=== PATIENT | female | born 1950 | race Caucasian/White ===

== ENCOUNTER → 2024-05-20 09:15 | Outpatient (REF) | payer MEDICARE, OTHER, SELFPAY | LOC: HWRAD 09:15 | PROVIDERS: ATTENDING PHYSICIAN Family Medicine | DX: R19.03 Right lower quadrant abdominal swelling, mass and lump (principal) | CPT/HCPCS: 74177; Q9967 ==

== ENCOUNTER 2024-05-31 08:19 | Outpatient (REF) | payer MEDICARE, OTHER, SELFPAY ==
[2024-05-27 13:05] VITALS: BMI 25.2
[2024-05-31] VITALS (7 sets, daily range): BP systolic 65–144; BP diastolic 64–81
[2024-05-31 08:38] LABS: Hematocrit 30.5 % (37.0-47.0); Hemoglobin 10.4 g/dL (12.0-16.0); Mean Corp Hgb Conc. 34.1 g/dL (33.0-37.0); Mean Corpuscular Hgb 29.5 pg (27.0-31.0); Mean Corpuscular Volume 86.4 fL (81.0-99.0); Mean Platelet Volume 8.7 fL (7.4-10.4); Platelet Count 308 10^3/uL (130-400); Red Blood Cell Count 3.53 10^6/uL (4.20-5.40); Red Cell Dist. Width 13.2 % (11.5-14.5)
[2024-05-31 08:45] LABS: INR 1.25; PT 15.6 Sec (11.4-14.6)
== END 2024-05-31 13:25 | disposition home or self-care (01) ==
LOC: RADI 08:19
PROVIDERS: ATTENDING PHYSICIAN Internal Medicine Hematology & Oncology; FAMILY PHYSICIAN Family Medicine
DX: C22.0 Liver cell carcinoma (principal); D68.8 Other specified coagulation defects
CPT/HCPCS: 88307; 36415; 47000; 76942; 85027; 85610; 88313; 88333; 88341; 88342; 88360; 99152; 99153

== ENCOUNTER → 2024-06-25 13:23 | Outpatient (REF) | payer MEDICARE, OTHER, SELFPAY ==
[2024-06-25 14:12] LABS: % Basophils 0.8 % (0-2); % Eosinophils 0.8 % (0-6); % Immature Granulocytes 0.2 % (0-0.5); % Lymphocytes 24.6 % (20.5-51.1); % Monocytes 12.6 % (1.7-9.3); Absolute Lymphocytes 1.2 10^3/uL (1.2-3.4); Absolute Monocytes 0.6 10^3/uL (0.1-0.6); Hematocrit 33.7 % (37.0-47.0); Hemoglobin 11.2 g/dL (12.0-16.0); Mean Corp Hgb Conc. 33.2 g/dL (33.0-37.0); Mean Corpuscular Hgb 28.6 pg (27.0-31.0); Mean Corpuscular Volume 86.2 fL (81.0-99.0); Mean Platelet Volume 8.8 fL (7.4-10.4); Nucleated Red Blood Cells % 0 %; Platelet Count 285 10^3/uL (130-400); Red Blood Cell Count 3.91 10^6/uL (4.20-5.40); Red Cell Dist. Width 13.5 % (11.5-14.5); White Blood Cell Count 4.8 10^3/uL (4.8-10.8)
[2024-06-25 14:16] LABS: Urine Albumin Trace (Neg - Trace); Urine Bilirubin 1+ (Negative); Urine Character Clear (Clear); Urine Color Yellow; Urine Glucose Negative (Negative); Urine Ketone Trace (Negative); Urine Leukocyte Trace (Negative); Urine Nitrite Negative (Negative); Urine Occult Blood Negative (Negative); Urine Urobilinogen Negative (Neg - 1+)
[2024-06-25 14:25] LABS: Urine Bacteria Few (Negative); Urine Mucus Moderate
[2024-06-25 14:35] LABS: ALT (SGPT) 32 U/L (0-35); AST (SGOT) 62 U/L (14-36); Albumin 4.3 g/dl (3.5-5.0); Alkaline Phosphatase 116 U/L (38-126); Blood Urea Nitrogen 16 mg/dl (7-17); Calcium 9.6 mg/dl (8.4-10.2); Carbon Dioxide 27 mmol/L (22-30); Chloride 98 mmol/L (98-107); Direct Bilirubin 0.2 mg/dl (0.0-0.4); Glucose 96 mg/dl (70-99); Potassium 4.3 mmol/L (3.5-5.1); Sodium 134 mmol/L (135-145); Total Bilirubin 0.5 mg/dl (0.2-1.3); Total Protein 7.1 g/dl (6.3-8.2); eGFR > 60.00
== END ==
LOC: REG 13:23
PROVIDERS: ATTENDING PHYSICIAN Nurse Practitioner Family; FAMILY PHYSICIAN Family Medicine
DX: C78.7 Secondary malignant neoplasm of liver and intrahepatic bile duct (principal); R93.2 Abnormal findings on diagnostic imaging of liver and biliary tract; C22.0 Liver cell carcinoma
CPT/HCPCS: 36415; 80053; 81003; 81015; 82248; 85025

== ENCOUNTER → 2024-06-25 14:06 | Outpatient (REF) | payer MEDICARE, OTHER, SELFPAY | LOC: MRI 3T 14:06 | PROVIDERS: ATTENDING PHYSICIAN Internal Medicine Hematology & Oncology; FAMILY PHYSICIAN Family Medicine | DX: C78.7 Secondary malignant neoplasm of liver and intrahepatic bile duct (principal); R93.2 Abnormal findings on diagnostic imaging of liver and biliary tract; C22.0 Liver cell carcinoma | CPT/HCPCS: 36415; 74183; 80053; 81003; 81015; 82248; 85025; A9581 ==

== ENCOUNTER → 2024-06-28 16:32 | Outpatient (REF) | payer MEDICARE, OTHER, SELFPAY | LOC: REG 16:32 | PROVIDERS: ATTENDING PHYSICIAN Internal Medicine Hematology & Oncology; FAMILY PHYSICIAN Family Medicine | DX: C78.7 Secondary malignant neoplasm of liver and intrahepatic bile duct (principal); R93.2 Abnormal findings on diagnostic imaging of liver and biliary tract; C22.0 Liver cell carcinoma | CPT/HCPCS: 36415; 87040 ==

== ENCOUNTER → 2024-08-13 07:32 | Outpatient (REF) | payer MEDICARE, OTHER, SELFPAY | LOC: MRI 07:32 | PROVIDERS: ATTENDING PHYSICIAN Internal Medicine Hematology & Oncology; FAMILY PHYSICIAN Family Medicine | DX: C22.0 Liver cell carcinoma (principal); C78.7 Secondary malignant neoplasm of liver and intrahepatic bile duct; R93.2 Abnormal findings on diagnostic imaging of liver and biliary tract | CPT/HCPCS: 74183; A9581 ==

== ENCOUNTER → 2024-08-18 16:12 | Outpatient (REF) | payer MEDICARE, OTHER, SELFPAY ==
[2024-08-18 15:56] LABS: TSH Reflex To Free T4 3.87 uIU/ml (0.47-4.68)
[2024-08-19 20:23] LABS: AFP Male/Tumor Marker > 9960 ng/ml
== END ==
LOC: OIDL 16:12
PROVIDERS: ATTENDING PHYSICIAN Internal Medicine Hematology & Oncology
DX: C78.7 Secondary malignant neoplasm of liver and intrahepatic bile duct (principal); R93.2 Abnormal findings on diagnostic imaging of liver and biliary tract; C22.0 Liver cell carcinoma; R53.82 Chronic fatigue, unspecified
CPT/HCPCS: 82105; 84443

== ENCOUNTER → 2024-09-06 11:53 | Outpatient (REF) | payer MEDICARE, OTHER, SELFPAY | LOC: RADI 11:53 | PROVIDERS: ATTENDING PHYSICIAN Internal Medicine Hematology & Oncology; FAMILY PHYSICIAN Family Medicine | DX: C22.0 Liver cell carcinoma (principal) ==

== ENCOUNTER 2024-10-21 07:28 | Day surgery (SDC) | payer MEDICARE, OTHER, SELFPAY ==
[2024-10-21] VITALS (10 sets, daily range): BP systolic 57–183; BP diastolic 81–98; BMI 24.8; BMI 24.4
[2024-10-21 07:58] LABS: % Basophils 0.9 % (0-2); % Eosinophils 1.1 % (0-6); % Immature Granulocytes 0.4 % (0-0.5); % Lymphocytes 30.7 % (20.5-51.1); % Monocytes 7.3 % (1.7-9.3); % Neutrophils 59.6 % (42.2-75.2); Absolute Basophils 0.1 10^3/uL (0-0.2); Absolute Eosinophils 0.1 10^3/uL (0-0.7); Absolute Lymphocytes 1.6 10^3/uL (1.2-3.4); Absolute Monocytes 0.4 10^3/uL (0.1-0.6); Absolute Neutrophils 3.2 10^3/uL (1.4-6.5); Hematocrit 44.1 % (37.0-47.0); Hemoglobin 14.2 g/dL (12.0-16.0); Mean Corp Hgb Conc. 32.2 g/dL (33.0-37.0); Mean Corpuscular Hgb 29.9 pg (27.0-31.0); Mean Corpuscular Volume 92.8 fL (81.0-99.0); Mean Platelet Volume 8.7 fL (7.4-10.4); Nucleated Red Blood Cells % 0 %; Platelet Count 254 10^3/uL (130-400); Red Blood Cell Count 4.75 10^6/uL (4.20-5.40); Red Cell Dist. Width 13.4 % (11.5-14.5); White Blood Cell Count 5.4 10^3/uL (4.8-10.8)
[2024-10-21 08:04] LABS: APTT 28.4 Sec (23.4-35.0); INR 1.02; PT 13.9 Sec (11.4-14.6)
[2024-10-21] MEDS: FLAGYL 500 MG 100 IV (08:48)
[2024-10-21] MEDS: NSS 1000 IV ×2 (08:48→18:26)
[2024-10-21 09:05] LABS: ALT (SGPT) 36 U/L (0-35); AST (SGOT) 66 U/L (14-36); Albumin 4.8 g/dl (3.5-5.0); Alkaline Phosphatase 79 U/L (38-126); Blood Urea Nitrogen 27 mg/dl (7-17); Calcium 9.9 mg/dl (8.4-10.2); Carbon Dioxide 29 mmol/L (22-30); Chloride 103 mmol/L (98-107); Direct Bilirubin 0.1 mg/dl (0.0-0.4); Estimated Creatinine Clearance 57 ml/min; Glucose 91 mg/dl (70-99); LDH 205 U/L (120-246); Potassium 4.4 mmol/L (3.5-5.1); Sodium 144 mmol/L (135-145); Total Bilirubin 0.6 mg/dl (0.2-1.3); Total Protein 7.4 g/dl (6.3-8.2); eGFR > 60.00
[2024-10-21] MEDS: DECADRON 8 MG IV (09:23)
[2024-10-21] MEDS: BENADRYL 50 MG IV (09:23)
[2024-10-21] MEDS: ANCEF 10 IV (09:24)
[2024-10-21] MEDS: ZOFRAN 54 MG IV (09:24)
--- NOTE | 2024-10-21 13:51 | PTCARENOTE ---
pt received from IR lying flat, in no distress. pt oriented to room, told of continued posture restrictions. had a wave of nausea, did not vomit, but refused med at this time. c/o back pain r/t positioning but refused med at this time. right groin
with bandaid c/d/i
[2024-10-21] MEDS: ZOFRAN 4 MG IV ×2 (14:40→21:42)
[2024-10-21] MEDS: TORADOL 15 MG IV (18:25)
[2024-10-21] MEDS: ROXICODONE PO (21:38)
[2024-10-21] MEDS: PROCARDIA XL (EXTENDED RELEASE) 30 MG PO (22:39)
[2024-10-21] MEDS: ROXICODONE 2.5 MG PO (22:40)
--- NOTE | 2024-10-21 23:19 | PTCARENOTE ---
Pt c/o back pain. States has chronic back pain but exacerbated with laying on table for procedure today. Given toradol earlier which did not help. Pt does not want to take roxicodone 5mg-feels it will be too strong. Asking for lower dose. Also pt
asking about BP med she takes at HS. TT to house [employer]. Roxicodone lowered to 2.5mg-pt vomited as soon as she swallowed dose. Pill seen in emesis by me and witnessed by another RN. Pt med with zofran IV and then given another dose of roxicodone and
also given BP med. Neurovascular checks done as ordered.
[2024-10-22 00:15] VITALS: BP 166/89
[2024-10-22 03:21] VITALS: BP 170/82
[2024-10-22] MEDS: NSS 1000 IV (04:01)
[2024-10-22 07:15] VITALS: BP 118/74
--- NOTE | 2024-10-22 07:59 | W.PN.GENERIC ---
Assessment / Plan
-
This is a 74 yo female with biopsy proven HCC who underwent chemoembolization yetserday. She has some back pain today but is voiding spontaneously and tolerating POs
She is stable for discharge
Plan to have her return to IR in 2 weeks for repeat embolization
I spent greater than 30 minutes reviewing medical records, laboratory studies and relevant images as well as examining the patient, documenting, counseling the patient, reviewing the procedure and expected results as well as the need to return for
repeat embolization
Physician Progress Note
Subjective
This is a 74-year-old female with past medical history significant for biopsy-proven hepatocellular carcinoma, hypertension, arthritis and diverticulitis. She had a CAT scan of her abdomen and pelvis which revealed ill-defined enhancing solid masses
within the liver. She then had a PET scan which revealed no other evidence for metastases. She underwent a liver biopsy on May 31, 2024 confirming hepatocellular carcinoma. She is presently receiving Tecentriq and Avastin every 3 weeks. She had a
chemoembolization yesterday in IR. She denies fever, chills, chest pain, shortness of breath, abdominal pain, nausea, vomiting, weight loss, dark or bloody stool, jaundice, itching. She is here today to discuss liver directed treatment.
PMH: HCC, hypertension, diverticulitis, bradycardia, arthritis, basal cell carcinoma on nose.
PSH: Breast biopsy x2, bunionectomy bilaterally, by fluoroscopic sigmoid colectomy.
Social History: Patient is and lives with her . She is a nonsmoker. She rarely drinks alcohol
Allergies: Actifed, Levaquin, sulfa drugs.
Current Medications: Aspirin 81 mg, calcium 500 mg, Compazine 10 mg, glucosamine 2000 mg, controlling 1200 mg, ibuprofen 200 mg, multivitamin, nifedipine ER 30 mg, Nutrofol women's balance, oxycodone 5 mg, selenium, tumor Quentin, vitamin B6 50 mg,
vitamin C 500 mg, women's Rogaine.
Objective
Vital Signs
Temp Pulse Resp BP Pulse Ox
98.9 F 63 15 170/82 95
10/22/24 03:21 10/22/24 03:21 10/22/24 03:21 10/22/24 03:21 10/22/24 03:21
Lab Results
10/21/24 07:41
10/21/24 07:41
Physical examination: This is a well-nourished well-developed 74-year-old female who is awake, alert and oriented in no acute distress. Her color is good without jaundice. Her skin is warm and dry. Her heart is regular. Her lungs are CTA. Her
abdomen is nondistended with bowel sounds. No clubbing cyanosis or edema. No calf pain. Tenderness to lower back and paralumbar muscles. She ambulates independently.
--- NOTE | 2024-10-22 09:43 | CM ---
supply chain development manager reviewed patient's chart and met with patient and patient lives with her spouse in a 2 story home, patient is independent with adl's and ambulation, no dme, patient drives, patient is for discharge to home today no needs, IMM completed
and placed on chart.
PCP: Meli Bauer
Pharmacy [facility]
Plan; Home today no needs.
[2024-10-22 11:00] VITALS: BP 157/91
== END 2024-10-22 13:08 | disposition home or self-care (01) ==
LOC: RADI 07:28
PROVIDERS: ATTENDING PHYSICIAN Radiology Diagnostic Radiology; FAMILY PHYSICIAN Family Medicine; REFERRING PHYSICIAN Internal Medicine Hematology & Oncology
DX: C22.0 Liver cell carcinoma (principal)
CPT/HCPCS: 37243; 96420; 36247; 36415; 75726; 76937; 80053; 82248; 83615; 85025; 85610; 85730; 99152; 99153; C1769; J9000

== ENCOUNTER 2024-11-11 08:29 | Day surgery (SDC) | payer MEDICARE, OTHER, SELFPAY ==
[2024-11-11] VITALS (12 sets, daily range): BP systolic 65–181; BP diastolic 80–98; BMI 24.3
[2024-11-11] MEDS: ZOFRAN 54 MG IV (09:21)
[2024-11-11] MEDS: UNASYN IV (09:21)
[2024-11-11] MEDS: BENADRYL 50 MG IV (11:07)
[2024-11-11] MEDS: NSS 1000 IV (11:07)
[2024-11-11] MEDS: DECADRON 8 MG IV (11:07)
[2024-11-11] MEDS: ZOFRAN 4 MG IV (14:23)
[2024-11-11] MEDS: COMPAZINE 10 MG IV ×2 (16:07→22:51)
[2024-11-11] MEDS: DILAUDID 0.5 MG IV (16:09)
[2024-11-11] MEDS: NSS IV (19:28)
[2024-11-11] MEDS: PROCARDIA XL (EXTENDED RELEASE) 30 MG PO (21:03)
[2024-11-11] MEDS: TORADOL 15 MG IV (21:03)
[2024-11-11] MEDS: ROXICODONE 2.5 MG PO (22:46)
[2024-11-12 03:33] VITALS: BP 145/77
[2024-11-12] MEDS: NSS IV (05:36)
[2024-11-12] MEDS: ZOFRAN 4 MG IV (07:33)
--- NOTE | 2024-11-12 08:13 | W.PN.GENERIC ---
Assessment / Plan
-
74 yo female with biopsy proven HCC s/p 2 stage chemoembolization
She still has some nausea but tolerating fluids
She is voiding spontaneously
She is stable for discharge today
I spent more than 30 minutes in reviewing medical records, recent labs and relevant imaging as well as performing history, physical exam and documenting findings. I reviewed the procedure and expected outcomes with the patient
Physician Progress Note
Subjective
This is a 74-year-old female with past medical history significant for biopsy-proven hepatocellular carcinoma, hypertension, arthritis and diverticulitis. She had a CAT scan of her abdomen and pelvis which revealed ill-defined enhancing solid masses
within the liver. She then had a PET scan which revealed no other evidence for metastases. She underwent a liver biopsy on May 31, 2024 confirming hepatocellular carcinoma. She is presently receiving Tecentriq and Avastin every 3 weeks. She had a
chemoembolization on 10/21/24 and another yesterday. She has some nausea and abdominal pain today. She denies fever, chills, chest pain, shortness of breath, weight loss, dark or bloody stool, jaundice, itching.
PMH: HCC, hypertension, diverticulitis, bradycardia, arthritis, basal cell carcinoma on nose.
PSH: Breast biopsy x2, bunionectomy bilaterally, by fluoroscopic sigmoid colectomy.
Social History: Patient is and lives with her . She is a nonsmoker. She rarely drinks alcohol
Allergies: Actifed, Levaquin, sulfa drugs.
Current Medications: Aspirin 81 mg, calcium 500 mg, Compazine 10 mg, glucosamine 2000 mg, controlling 1200 mg, ibuprofen 200 mg, multivitamin, nifedipine ER 30 mg, Nutrofol women's balance, oxycodone 5 mg, selenium, tumor Quentin, vitamin B6 50 mg,
vitamin C 500 mg, women's Rogaine.
Objective
Vital Signs
Temp Pulse Resp BP Pulse Ox
98.8 F 83 18 145/77 96
11/12/24 03:33 11/12/24 03:33 11/12/24 03:33 11/12/24 03:33 11/12/24 03:33
This is a WNWD 74 yo female in NAD sitting up in a chair. Her color is good. Her skin is warm and dry. NO jaundice. NO scleral icterus. Heart is regular. Lungs are CTA. Abdomen is soft and mildly tender with bowel sounds present. No LE
edema. Groin dressing CDI. No hematoma. Palpable pulses
[2024-11-12 08:25] VITALS: BP 143/81
--- NOTE | 2024-11-12 10:33 | CM ---
Met with pt at bedside
Pt reports she lives with her in a 2 story town home; 2 steps to enter, 16 steps to 2nd fl
Retired, independent, driving
DME - none
SNF/HH - none
Has ride at discharge
PCP - Meli Flores
Pharm - [facility] [place]
Plan - home no needs
== END 2024-11-12 11:50 | disposition home or self-care (01) ==
LOC: RADI 08:29
PROVIDERS: ATTENDING PHYSICIAN Radiology Diagnostic Radiology; FAMILY PHYSICIAN Family Medicine; REFERRING PHYSICIAN Internal Medicine Hematology & Oncology
DX: C22.0 Liver cell carcinoma (principal)
CPT/HCPCS: 37243; 96420; 36246; 75726; 76937; 99152; 99153; C1769; C1887; J9000

== ENCOUNTER → 2025-01-17 11:15 | Outpatient (REF) | payer MEDICARE, OTHER, SELFPAY | LOC: RAD 11:15 | PROVIDERS: ATTENDING PHYSICIAN Internal Medicine Hematology & Oncology; FAMILY PHYSICIAN Family Medicine | DX: C22.0 Liver cell carcinoma (principal); C78.7 Secondary malignant neoplasm of liver and intrahepatic bile duct; R93.2 Abnormal findings on diagnostic imaging of liver and biliary tract; Z51.12 Encounter for antineoplastic immunotherapy; E07.9 Disorder of thyroid, unspecified | CPT/HCPCS: 71260; Q9967 ==

== ENCOUNTER → 2025-01-21 10:01 | Outpatient (REF) | payer MEDICARE, OTHER, SELFPAY | LOC: PAVMRI 10:01 | PROVIDERS: ATTENDING PHYSICIAN Internal Medicine Hematology & Oncology; FAMILY PHYSICIAN Family Medicine | DX: R93.2 Abnormal findings on diagnostic imaging of liver and biliary tract (principal); C22.0 Liver cell carcinoma; Z51.12 Encounter for antineoplastic immunotherapy | CPT/HCPCS: 74183; A9581 ==

== ENCOUNTER 2025-03-01 14:53 | Day surgery (SDC) | payer MEDICARE, OTHER, SELFPAY ==
[2025-03-01] VITALS (13 sets, daily range): BP systolic 66–192; BP diastolic 71–103; BMI 24.0
[2025-03-01 08:00] LABS: % Basophils 0.7 % (0-2); % Eosinophils 1.5 % (0-6); % Immature Granulocytes 0.4 % (0-0.5); % Monocytes 5.7 % (1.7-9.3); % Neutrophils 68.7 % (42.2-75.2); Absolute Basophils 0.1 10^3/uL (0-0.2); Absolute Eosinophils 0.1 10^3/uL (0-0.7); Absolute Lymphocytes 1.5 10^3/uL (1.2-3.4); Absolute Monocytes 0.4 10^3/uL (0.1-0.6); Absolute Neutrophils 4.6 10^3/uL (1.4-6.5); Hematocrit 39.8 % (37.0-47.0); Hemoglobin 12.6 g/dL (12.0-16.0); Mean Corp Hgb Conc. 31.7 g/dL (33.0-37.0); Mean Corpuscular Hgb 27.6 pg (27.0-31.0); Mean Corpuscular Volume 87.1 fL (81.0-99.0); Mean Platelet Volume 8.6 fL (7.4-10.4); Nucleated Red Blood Cells % 0 %; Platelet Count 237 10^3/uL (130-400); Red Blood Cell Count 4.57 10^6/uL (4.20-5.40); Red Cell Dist. Width 15.8 % (11.5-14.5); White Blood Cell Count 6.7 10^3/uL (4.8-10.8)
[2025-03-01 08:09] LABS: Blood Urea Nitrogen 18 mg/dl (7-17); Glucose 90 mg/dl (70-99)
[2025-03-01 08:10] LABS: ALT (SGPT) 26 U/L (0-35); AST (SGOT) 39 U/L (14-36); Albumin 4.1 g/dl (3.5-5.0); Alkaline Phosphatase 113 U/L (38-126); Carbon Dioxide 32 mmol/L (22-30); Chloride 104 mmol/L (98-107); Direct Bilirubin 0.1 mg/dl (0.0-0.4); Estimated Creatinine Clearance 59 ml/min; INR 1.14; LDH 268 U/L (120-246); PT 14.9 Sec (11.4-14.6); Potassium 4.2 mmol/L (3.5-5.1); Sodium 144 mmol/L (135-145); Total Bilirubin 0.6 mg/dl (0.2-1.3); Total Protein 7.4 g/dl (6.3-8.2); eGFR > 60.00
[2025-03-01 08:11] LABS: APTT 30.6 Sec (23.4-35.0)
[2025-03-01] MEDS: BENADRYL 50 MG IV (08:49)
[2025-03-01] MEDS: DECADRON 8 MG IV (08:50)
[2025-03-01] MEDS: NSS 1000 IV ×2 (08:51→20:01)
[2025-03-01] MEDS: ZOFRAN 54 MG IV (09:00)
[2025-03-01] MEDS: UNASYN IV (09:16)
[2025-03-01] MEDS: DILAUDID 0.5 MG IV ×2 (12:05→18:08)
--- NOTE | 2025-03-01 12:13 | PTCARENOTE ---
Returned to IRAD recovery after chemo-embolization of liver. Pt. with back pain, a '7' on 0-10 scale. Assessment as documented, dilaudid 0.5mg IV given over 5 minutes. Post angiography checks to right groin documented under intervention. Vital signs
as documented. Right groin bandaid dry and intact. No hematoma.
[2025-03-01] MEDS: ZOFRAN 4 MG IV (16:36)
--- NOTE | 2025-03-01 17:30 | PTCARENOTE ---
Patient admitted from [facility]. Patient R femoral site CDI. + pedal pulses b/l. Patient AAOx3 with c/o of mild back pain and N/V. IV Zofran administered prn. Call guerra within reach.
[2025-03-01] MEDS: APRESOLINE 10 MG IV ×2 (18:00→23:31)
[2025-03-01] MEDS: PROCARDIA XL (EXTENDED RELEASE) 30 MG PO (20:02)
[2025-03-02] MEDS: ZOFRAN 4 MG IV (01:26)
[2025-03-02 01:36] VITALS: BP 154/85
[2025-03-02 03:08] VITALS: BP 151/80
[2025-03-02] MEDS: NSS 1000 IV (05:43)
--- NOTE | 2025-03-02 07:22 | W.PN.UPDATE ---
Update Note
Progress Note Update
~20:00�RN advised that patient felt dizziness/shakiness after returning from chemo embolization when HOB elevated. Evaluated patient, stated symptoms resolving,�
VSS: BP�171/91, HR 92, Temp 97.6, Resp 18, 96% on room air.� Kept on bed rest until symptoms resolved. HOB flat.
~ 23:30�Pt treated for elevated BP 172/93, HR 87�w/PRN dose hydralazine.�
~2 am. Received TT from RN.�Per RN, patient dizziness/shakiness resolved. Rechecked BP after PRN medication, 154/85, HR 93,�pt c/o heart palpitations and nausea after receiving Hydralazine.�Pt given Zofran, heart pounding and nausea resolving. When
RN went to re-evaluate, patient asleep.�
[2025-03-02 07:55] VITALS: BP 150/79
[2025-03-02] MEDS: PROCARDIA XL (EXTENDED RELEASE) 30 MG PO (09:04)
--- NOTE | 2025-03-02 09:48 | CM ---
Reviewed the chart notes and spoke with the patient at the bedside. The patient resides with her spouse in a two story home with two steps to enter. The patient reports no DME/VN/SNF in the past. The patient confirmed her pharmacy of choice is
the [facility]. The patient's spouse will provide transportation home today. CM continues to be available to patient/family and is monitoring medical plan for needs at discharge.
Plan: Discharge to home with no additional needs identified at this time.
== END 2025-03-02 11:15 | disposition home or self-care (01) ==
LOC: SDS 14:53
PROVIDERS: ATTENDING PHYSICIAN Radiology Diagnostic Radiology; FAMILY PHYSICIAN Family Medicine; OTHER PHYSICIAN Internal Medicine Hematology & Oncology; OTHER PHYSICIAN Physician Assistant
DX: C22.0 Liver cell carcinoma (principal); D68.8 Other specified coagulation defects
CPT/HCPCS: 37243; 36247; 36415; 75726; 76937; 80053; 82248; 83615; 85025; 85610; 85730; 96420; 99152; 99153; C1769; J9000

== ENCOUNTER → 2025-05-18 10:52 | Outpatient (REF) | payer MEDICARE, OTHER, SELFPAY | LOC: PAVMRI 10:52 | PROVIDERS: ATTENDING PHYSICIAN Internal Medicine Hematology & Oncology; FAMILY PHYSICIAN Family Medicine | DX: C78.7 Secondary malignant neoplasm of liver and intrahepatic bile duct (principal); R93.2 Abnormal findings on diagnostic imaging of liver and biliary tract; C22.0 Liver cell carcinoma; Z51.12 Encounter for antineoplastic immunotherapy; E07.9 Disorder of thyroid, unspecified; E03.9 Hypothyroidism, unspecified; R53.82 Chronic fatigue, unspecified | CPT/HCPCS: 74183; A9581 ==

== ENCOUNTER → 2025-07-05 13:48 | Outpatient (REF) | payer MEDICARE, OTHER, SELFPAY | LOC: RAD 13:48 | PROVIDERS: ATTENDING PHYSICIAN Internal Medicine Hematology & Oncology; FAMILY PHYSICIAN Family Medicine | DX: C22.0 Liver cell carcinoma (principal); C78.7 Secondary malignant neoplasm of liver and intrahepatic bile duct; R93.2 Abnormal findings on diagnostic imaging of liver and biliary tract; Z51.12 Encounter for antineoplastic immunotherapy; E07.9 Disorder of thyroid, unspecified; C03.9 Malignant neoplasm of gum, unspecified; R53.82 Chronic fatigue, unspecified | CPT/HCPCS: 71260; Q9967 ==

== ENCOUNTER → 2025-10-14 10:54 | Outpatient (REF) | payer MEDICARE, OTHER, SELFPAY | LOC: RAD 10:54 | PROVIDERS: ATTENDING PHYSICIAN Internal Medicine Hematology & Oncology; FAMILY PHYSICIAN Family Medicine | DX: C22.0 Liver cell carcinoma (principal); C78.7 Secondary malignant neoplasm of liver and intrahepatic bile duct; R93.2 Abnormal findings on diagnostic imaging of liver and biliary tract; Z51.12 Encounter for antineoplastic immunotherapy; E07.9 Disorder of thyroid, unspecified; E03.9 Hypothyroidism, unspecified; R53.82 Chronic fatigue, unspecified | CPT/HCPCS: 71260; Q9967 ==

== ENCOUNTER → 2025-10-17 10:34 | Outpatient (REF) | payer MEDICARE, OTHER, SELFPAY | LOC: PAVMRI 10:34 | PROVIDERS: ATTENDING PHYSICIAN Internal Medicine Hematology & Oncology; FAMILY PHYSICIAN Family Medicine | DX: C78.7 Secondary malignant neoplasm of liver and intrahepatic bile duct (principal); R93.2 Abnormal findings on diagnostic imaging of liver and biliary tract; C22.0 Liver cell carcinoma; Z51.12 Encounter for antineoplastic immunotherapy; E07.9 Disorder of thyroid, unspecified; E03.9 Hypothyroidism, unspecified; R53.82 Chronic fatigue, unspecified | CPT/HCPCS: 74183; A9581 ==

== ENCOUNTER 2025-10-31 06:24 | Day surgery (SDC) | payer MEDICARE, OTHER, SELFPAY ==
[2025-10-31] VITALS (7 sets, daily range): BP systolic 125–160; BP diastolic 78–99; BMI 25.4
[2025-10-31] MEDS: NSS 500 IV (13:39)
--- NOTE | 2025-10-31 16:54 | PTCARENOTE ---
upon review of [employer] pt noticed incorrect name and on paperwork. Kym DANIEL RN and Dr. Barrera both made aware. per Dr. Barrera this should not delay pt's discharge home. account number matched pt's wristband. incorrect name and on [employer].
== END 2025-10-31 16:20 | disposition home or self-care (01) ==
LOC: SDS 06:24
PROVIDERS: ATTENDING PHYSICIAN Internal Medicine
DX: C77.1 Secondary and unspecified malignant neoplasm of intrathoracic lymph nodes (principal); C22.8 Malignant neoplasm of liver, primary, unspecified as to type; R93.89 Abnormal findings on diagnostic imaging of other specified body structures; R91.8 Other nonspecific abnormal finding of lung field; R59.0 Localized enlarged lymph nodes
CPT/HCPCS: 31629; 31624; 31623; 31654; 31653; 71045; 87070; 87102; 87116; 87205; 88112; 88173; 88305; 88341; 88342; C1713

== ENCOUNTER → 2025-11-22 10:15 | Outpatient (REF) | payer MEDICARE, OTHER, SELFPAY | LOC: RCS 10:15 | PROVIDERS: ATTENDING PHYSICIAN Internal Medicine Hematology & Oncology; FAMILY PHYSICIAN Family Medicine | DX: C78.7 Secondary malignant neoplasm of liver and intrahepatic bile duct (principal); R93.2 Abnormal findings on diagnostic imaging of liver and biliary tract; C22.0 Liver cell carcinoma; Z51.12 Encounter for antineoplastic immunotherapy; E07.9 Disorder of thyroid, unspecified; E03.9 Hypothyroidism, unspecified; R53.82 Chronic fatigue, unspecified | CPT/HCPCS: 93306; 93356 ==